=== PATIENT | female | born 1990 | race Caucasian/White ===

== ENCOUNTER 2024-09-04 23:48 | Emergency (ER) | payer OTHER ==
[~2024-09-04] VITALS: Ht 177.8 cm; Wt 145.5 kg
[2024-09-05 00:12] VITALS: O2SAT 100
[2024-09-05] MEDS ORDERED: RIVAROXABAN 10 MG TABLET PO SCH (01:00)
[2024-09-05 01:16] LABS: CLARITY URINE CLEAR (CLEAR); COLOR URINE YELLOW (YELLOW); GLUCOSE URINE NEGATIVE (NEGATIVE); KETONES URINE NEGATIVE (NEGATIVE); LEUKOCYTE ESTERASE URINE 1+ (NEGATIVE); NITRITE URINE NEGATIVE (NEGATIVE); OCCULT BLOOD URINE NEGATIVE (NEGATIVE); PH URINE 5.5 (4.5-8.0); PROTEIN URINE NEGATIVE (NEGATIVE); SPECIFIC GRAVITY URINE 1.026 (1.005-1.030)
[2024-09-05 01:19] LABS: BASOPHILS % 0.8 % (0.0-2.0); HEMATOCRIT. 40.1 % (36.0-48.0); HEMOGLOBIN. 13.4 g/dL (12.0-16.0); LYMPHOCYTES % 26.8 % (20.0-50.0); MEAN CORPUSCULAR HEMOGLOBIN 27.7 pg (28.0-32.0); MEAN CORPUSCULAR HGB CONC 33.3 g/dL (31.0-37.0); MEAN CORPUSCULAR VOLUME 83.2 fL (81.0-99.0); MEAN PLATELET VOLUME 7.4 fl (7.4-10.4); MONOCYTES % 5.9 % (2.0-8.0); NEUTROPHILS % 63.5 % (40.0-76.0); PLATELET 276 x1000/uL (130-400); RED BLOOD CELL COUNT 4.82 mill/uL (4.2-5.4); RED CELL DISTRIBUTION WIDTH 14.5 % (11.6-14.6); WHITE BLOOD COUNT 6.6 x1000/uL (4.5-11.0)
[2024-09-05 01:25] LABS: *AMPHETAMINES SCREEN URINE NEGATIVE (NEGATIVE); *BARBITURATES SCREEN URINE NEGATIVE (NEGATIVE); *BENZODIAZEPINES SCREEN URINE NEGATIVE (NEGATIVE); *COCAINE SCREEN URINE NEGATIVE (NEGATIVE); CANNABINOID URINE SCREEN NEGATIVE (NEGATIVE); ECSTASY MDMA SCREEN URINE NEGATIVE (NEGATIVE); METHADONE URINE SCREEN NEGATIVE (NEGATIVE); OPIATES URINE SCREEN NEGATIVE (NEGATIVE); PHENCYCLIDINE URINE SCREEN NEGATIVE (NEGATIVE)
[2024-09-05 01:32] LABS: CHLORIDE 107 mEq/L (98-107); POTASSIUM 4.3 mEq/L (3.5-5.1); SODIUM 144 mEq/L (136-145)
[2024-09-05 01:33] LABS: CALCIUM 8.9 mg/dL (8.7-10.4); CARBON DIOXIDE 26 mEq/L (21-32)
[2024-09-05 01:35] LABS: HCG SCREEN NEGATIVE
[2024-09-05 01:38] LABS: GLUCOSE 98 mg/dL (70-105); UREA NITROGEN BLOOD 19 mg/dL (9-23)
[2024-09-05 01:39] LABS: ETHANOL BLOOD < 10 mg/dL (<10)
[2024-09-05 01:40] LABS: ACETAMINOPHEN < 2 ug/mL (10-30); ALANINE AMINOTRANSFERASE 14 IU/L (10-49); ALBUMIN 4.2 g/dL (3.2-4.8); ASPARTATE AMINOTRANSFERASE 12 IU/L (<34); BILIRUBIN DIRECT 0.1 mg/dL (<=3.0)
[2024-09-05 01:41] LABS: BILIRUBIN TOTAL 0.3 mg/dL (0.1-1.0); PROTEIN TOTAL 6.8 g/dL (6.0-8.3)
[2024-09-05 01:46] LABS: BACTERIA URINE TRACE; RBC URINE NONE SEEN /hpf (0-2); SQUAMOUS EPITHELIAL CELL URINE 3+ /lpf (RARE/1+)
[2024-09-05 06:24] LABS: PARTIAL THROMBOPLASTIN TIME 27.1 sec (23.4-31.0); PROTHROMBIN TIME 10.9 sec (9.6-11.0)
[2024-09-05] MEDS: NITROFURANTOIN 100MG M/M CAPSULE PO SCH (09:36)
[2024-09-05] MEDS ORDERED: HYDROXYZINE 25MG TABLET PO PRN (13:00)
[2024-09-05] MEDS: FLUOXETINE HCL 10 MG CAPSULE PO SCH (13:27)
[2024-09-05 18:17] VITALS: BP 136/86; PULSE 57; RESP 16; TEMP 36.8; O2SAT 99
== END 2024-09-05 18:06 ==
LOC: ER 23:48
DX: R45.851 Suicidal ideations (principal); Z86.718 Personal history of other venous thrombosis and embolism; Z20.822 Contact with and (suspected) exposure to COVID-19; Z79.899 Other long term (current) drug therapy; Z98.890 Other specified postprocedural states
CPT/HCPCS: 99285; 80076; 80305; 80048; 81003; 80307; 80329; 80320; 84703; 85025; 85610; 85730; 36415; 87426; Z7610; G0480